=== PATIENT | female | born 1970 | race Asian ===

== ENCOUNTER → 2023-10-18 | Outpatient (CLI) | payer BC ==
[2023-10-18 11:56] LABS: BASOPHILS % 0.2 % (0.0-2.0); CLARITY URINE CLEAR (CLEAR); COLOR URINE YELLOW (YELLOW); EOSINOPHILS % 0.5 % (0.0-5.0); GLUCOSE URINE NEGATIVE (NEGATIVE); HEMATOCRIT. 43.6 % (36.0-48.0); HEMOGLOBIN. 14.3 g/dL (12.0-16.0); KETONES URINE NEGATIVE (NEGATIVE); LEUKOCYTE ESTERASE URINE NEGATIVE (NEGATIVE); MEAN CORPUSCULAR HEMOGLOBIN 32.7 pg (28.0-32.0); MEAN CORPUSCULAR HGB CONC 32.8 g/dL (31.0-37.0); MEAN CORPUSCULAR VOLUME 99.8 fL (81.0-99.0); MEAN PLATELET VOLUME 8.4 fl (7.4-10.4); MONOCYTES % 5.6 % (2.0-8.0); NEUTROPHILS % 82.7 % (40.0-76.0); NITRITE URINE NEGATIVE (NEGATIVE); OCCULT BLOOD URINE NEGATIVE (NEGATIVE); PH URINE 8.5 (4.5-8.0); PLATELET 237 x1000/uL (130-400); PROTEIN URINE NEGATIVE (NEGATIVE); RED BLOOD CELL COUNT 4.37 mill/uL (4.2-5.4); RED CELL DISTRIBUTION WIDTH 13.6 % (11.6-14.6); UROBILINOGEN URINE 0.2 E.U./dL (0.2-1.0); WHITE BLOOD COUNT 11.5 x1000/uL (4.5-11.0)
[2023-10-18 12:03] LABS: CHLORIDE 107 mEq/L (98-107); POTASSIUM 4.3 mEq/L (3.5-5.1); SODIUM 138 mEq/L (136-145)
[2023-10-18 12:04] LABS: CALCIUM 9.4 mg/dL (8.7-10.4); CARBON DIOXIDE 28 mEq/L (21-32)
[2023-10-18 12:09] LABS: CREATININE 0.7 mg/dL (0.6-1.0); GLUCOSE 101 mg/dL (70-105); IRON 135 ug/dL (50-170); URIC ACID 3.4 mg/dL (3.1-7.8)
[2023-10-18 12:10] LABS: LDL CHOLESTEROL 29 mg/dL (5-100); TRIGLYCERIDE 165 mg/dL (0-150); UREA NITROGEN BLOOD 8 mg/dL (9-23)
[2023-10-18 12:11] LABS: ALANINE AMINOTRANSFERASE 24 IU/L (10-49); ALBUMIN 4.6 g/dL (3.2-4.8); ASPARTATE AMINOTRANSFERASE 34 IU/L (<34); CHOLESTEROL 153 mg/dL (<200); LACTATE DEHYDROGENASE 185 IU/L (120-246); PHOSPHORUS 3.4 mg/dL (2.5-4.9)
[2023-10-18 12:12] LABS: BILIRUBIN TOTAL 0.6 mg/dL (0.1-1.0); PROTEIN TOTAL 7.2 g/dL (6.0-8.3); TOTAL IRON BINDING CAPACITY 113 ug/dl (250-425)
[2023-10-18 12:14] LABS: THYROID STIMULATING HORMONE 0.28 uIU/mL (0.55-4.78)
[2023-10-18 12:45] LABS: ERYTHROCYTE SEDIMENTATION RATE 2 mm/hr (0-30)
[2023-10-18 12:50] LABS: HDL CHOLESTEROL 86 mg/dL (>65)
[2023-10-18 13:03] LABS: TRIOIODOTHYRONINE TOTAL 1.29 ng/ml (0.60-1.81)
[2023-10-18 13:15] LABS: HEPATITIS B SURFACE ANTIGEN NEGATIVE (Negative)
[2023-10-18 13:18] LABS: T4 FREE 1.18 ng/dL (0.89-1.76)
[2023-10-18 13:20] LABS: FOLIC ACID (FOLATE) SERUM > 20.00 ng/mL (>5.38)
[2023-10-18 13:25] LABS: C REACTIVE PROTEIN HIGH SENS 0.22 mg/l (<1.00)
[2023-10-18 13:36] LABS: HEPATITIS A AB IGM NEGATIVE (Negative)
[2023-10-18 13:37] LABS: HEPATITIS B CORE AB IGM NEGATIVE (Negative); HEPATITIS C AB NON REACTIVE (Neg) (Negative)
[2023-10-20 07:08] LABS: FOLICLE STIMULATING HORMONE 84.6 mIU/mL (.); LUTEINIZING HORMONE 50.5 mIU/mL (.)
== END | disposition home or self-care (01) ==
LOC: LAB 11:02
PROVIDERS: ATTEND Internal Medicine
DX: Z00.00 Encounter for general adult medical examination without abnormal findings (principal); I10 Essential (primary) hypertension; R94.6 Abnormal results of thyroid function studies; N39.0 Urinary tract infection, site not specified; R94.5 Abnormal results of liver function studies; D64.9 Anemia, unspecified; D68.9 Coagulation defect, unspecified; R10.9 Unspecified abdominal pain; E78.00 Pure hypercholesterolemia, unspecified
CPT/HCPCS: 36415; 80053; 80061; 81003; 82306; 82670; 82746; 83001; 83002; 83036; 83540; 83550; 83615; 84100; 84403; 84439; 84443; 84480; 84550; 85025; 85651; 86141; 86705; 86709; 87340

== ENCOUNTER → 2024-12-28 | Outpatient (CLI) | payer BC ==
[2024-12-28 09:08] LABS: CLARITY URINE TURBID (CLEAR); COLOR URINE DARK YELLOW (YELLOW); GLUCOSE URINE NEGATIVE (NEGATIVE); KETONES URINE TRACE (NEGATIVE); LEUKOCYTE ESTERASE URINE NEGATIVE (NEGATIVE); NITRITE URINE NEGATIVE (NEGATIVE); OCCULT BLOOD URINE NEGATIVE (NEGATIVE); PH URINE 5.5 (4.5-8.0); PROTEIN URINE 1+ (NEGATIVE); SPECIFIC GRAVITY URINE 1.022 (1.005-1.030); UROBILINOGEN URINE 0.2 E.U./dL (0.2-1.0)
[2024-12-28 09:35] LABS: MUCUS URINE 3+ /lpf (< = 2+)
[2024-12-28 09:36] LABS: SQUAMOUS EPITHELIAL CELL URINE 2+ /lpf (RARE/1+); WBC URINE 0-2 /hpf (0-2)
[2024-12-28 09:37] LABS: AMORPHOUS SEDIMENT URINE 2+ /lpf; BACTERIA URINE 2+; RBC URINE NONE SEEN /hpf (0-2)
[2024-12-28 10:04] LABS: BASOPHILS % 0.3 % (0.0-2.0); EOSINOPHILS % 0.6 % (0.0-5.0); HEMATOCRIT. 44.1 % (36.0-48.0); HEMOGLOBIN. 14.6 g/dL (12.0-16.0); LYMPHOCYTES % 14.5 % (20.0-50.0); MEAN PLATELET VOLUME 8.6 fl (7.4-10.4); MONOCYTES % 4.5 % (2.0-8.0); NEUTROPHILS % 80.1 % (40.0-76.0); PLATELET 208 x1000/uL (130-400); RED BLOOD CELL COUNT 4.44 mill/uL (4.2-5.4); RED CELL DISTRIBUTION WIDTH 13.5 % (11.6-14.6)
[2024-12-28 10:29] LABS: CREATININE 0.8 mg/dL (0.6-1.0)
[2024-12-28 10:30] LABS: LDL CHOLESTEROL 38 mg/dL (5-100); TRIGLYCERIDE 210 mg/dL (0-150); UREA NITROGEN BLOOD 9 mg/dL (9-23)
[2024-12-28 10:31] LABS: ASPARTATE AMINOTRANSFERASE 33 IU/L (<34)
[2024-12-28 10:32] LABS: BILIRUBIN TOTAL 0.6 mg/dL (0.1-1.0); PROTEIN TOTAL 7.5 g/dL (6.0-8.3)
[2024-12-28 10:34] LABS: T4 FREE 1.42 ng/dL (0.89-1.76)
[2024-12-28 11:22] LABS: ERYTHROCYTE SEDIMENTATION RATE 3 mm/hr (0-30)
[2024-12-28 11:30] LABS: FOLIC ACID (FOLATE) SERUM > 20.00 ng/mL (>5.38)
[2024-12-28 12:03] LABS: HEPATITIS A AB IGM NEGATIVE (Negative)
[2024-12-28 12:04] LABS: HEPATITIS B CORE AB IGM NEGATIVE (Negative); HEPATITIS C AB NON REACTIVE (Neg) (Negative)
[2024-12-30 04:08] LABS: *T3 UPTAKE 27 % (24-39); *THYROXINE INDEX FREE 2.4 (1.2-4.9); FOLICLE STIMULATING HORMONE 95.3 mIU/mL (.); LUTEINIZING HORMONE 60.3 mIU/mL (.); T4 THYROXINE 8.8 ug/dL (4.5-12.0)
== END | disposition home or self-care (01) ==
LOC: LAB 08:16
DX: E11.9 Type 2 diabetes mellitus without complications (principal); E55.9 Vitamin D deficiency, unspecified; E79.9 Disorder of purine and pyrimidine metabolism, unspecified; R94.5 Abnormal results of liver function studies; D68.9 Coagulation defect, unspecified; B96.81 Helicobacter pylori [H. pylori] as the cause of diseases classified elsewhere; R94.6 Abnormal results of thyroid function studies; Z13.228 Encounter for screening for other metabolic disorders; Z13.0 Encounter for screening for diseases of the blood and blood-forming organs and certain disorders involving the immune mechanism; Z79.899 Other long term (current) drug therapy
CPT/HCPCS: 36415; 80053; 80061; 80074; 81003; 82746; 83001; 83002; 83036; 83540; 83550; 84403; 84436; 84439; 84443; 84479; 84550; 85025; 85651; 86705; 86709; 87340

== ENCOUNTER 2025-02-02 11:23 | Emergency (ER) | payer BC ==
[~2025-02-02] VITALS: Ht 157.5 cm; Wt 50.0 kg
[2025-02-02] MEDS ORDERED: PROPOFOL 200MG/20ML VIAL IV PRN (12:15)
[2025-02-02] MEDS: ONDANSETRON HCL 4MG/2ML INJ IV ONE (12:15)
[2025-02-02] MEDS: KETAMINE HCL 50 MG/ML 10ML IV ONE (12:15)
[2025-02-02] MEDS: SODIUM CHLORIDE 0.9% 1,000 ML IV ONE (13:07)
[2025-02-02 14:25] VITALS: O2SAT 100
[2025-02-02 16:11] VITALS: BP 140/85; PULSE 72; RESP 18; O2SAT 100
== END 2025-02-02 16:13 | disposition home or self-care (01) ==
LOC: ER 11:23
DX: S52.692A Other fracture of lower end of left ulna, initial encounter for closed fracture (principal); W19.XXXA Unspecified fall, initial encounter; Y93.89 Activity, other specified; Y92.89 Other specified places as the place of occurrence of the external cause; Y99.8 Other external cause status
CPT/HCPCS: 73100; 73110; 25605; 96361; 96374; 99152; 99285; J3490; J2405; J2704; J7030; Z7610 ×2; A6449; A4615; A4565